=== PATIENT | male | born 1965 | race African-American/Black ===

== ENCOUNTER 2018-09-18 11:42 | Inpatient (IN) | payer OTHER ==
[2018-09-18 12:24] VITALS: BMI 30.1
--- NOTE | 2018-09-18 15:41 | HP ---
CIWA Score Nausea/Vomitin-Mild Nausea/No Vomiting Muscle Tremors: 4-Moderate,w/Arms Extend Anxiety: 4-Mod. Anxious/Guarded Agitation: 4-Moderately Restless Paroxysmal Sweats: 3 Orientation: 0-Oriented Tacttile Disturbances: 0-None Auditory Disturbances: 0-None Visual Disturbances: 0-None Headache: 1-Very Mild CIWA-Ar Total Score: 17 - Admission Criteria OASAS Guidelines: Admission for Medically Managed Detox: Requires at least one of the followin. CIWA greater than 12 2. Seizures within the past 24 hours 3. Delirium tremens within the past 24 hours 4. Hallucinations within the past 24 hours 5. Acute intervention needed for co occurring medical disorder 6. Acute intervention needed for co occurring psychiatric disorder 7. Severe withdrawal that cannot be handled at a lower level of care (continued vomiting, continued diarrhea, abnormal vital signs) requiring intravenous medication and/or fluids 8. Admission ROS S - HPI Chief Complaint: I need to stop drinking and try to stay healthy. Allergies/Adverse Reactions: Allergies Allergy/AdvReac Type Severity Reaction Status Date / Time No Known Allergies Allergy Verified 09/18/18 15:24 History of Present Illness: pt is a 53yr old male with a history of alcohol dependence seeking detox for treatment. Pt is also on a MMTP program taking 140mg last received today. Pending verification. Exam Limitations: No Limitations - Ebola screening Have you traveled outside of the country in the last 21 days: No Have you had contact with anyone from an Ebola affected area: No Have you been sick,other than usual withdrawal symptoms: No Do you have a fever: No - Review of Systems Constitutional: Diaphoresis, Night Sweats, Changes in sleep EENT: reports: Tearing, Nose Congestion Respiratory: reports: Cough Cardiac: reports: Syncope GI: reports: Diarrhea, Poor Appetite, Poor Fluid Intake : reports: No Symptoms Reported Musculoskeletal: reports: Back Pain, Muscle Pain Integumentary: reports: Flushing, Sweating Neuro: reports: Headache, Tingling, Tremors Endocrine: reports: Excessive Sweating, Flushing, Intolerance to Cold, Intolerance to Heat Hematology: reports: No Symptoms Reported Psychiatric: reports: Judgement Intact, Mood/Affect Appropiate, Orientated x3, Agitated, Anxious Other Systems: Reviewed and Negative Patient History - Patient Medical History Hx Anemia: No Hx Asthma: No Hx Chronic Obstructive Pulmonary Disease (COPD): No Hx Cancer: No Hx Cardiac Disorders: No Hx Congestive Heart Failure: No Hx Hypertension: Yes Hx Hypercholesterolemia: No Hx Pacemaker: No HX Cerebrovascular Accident: No Hx Seizures: No Hx Dementia: No Hx Diabetes: No Hx Gastrointestinal Disorders: Yes (acid reflux) Hx Liver Disease: No Hx Genitourinary Disorders: No Hx Sexually Transmitted Disorders: No Hx Renal Disease (ESRD): No Hx Thyroid Disease: No Hx Human Immunodeficiency Virus (HIV): No (negative) Hx Hepatitis C: No (negative) Hx Depression: Yes Hx Suicide Attempt: No (denies) Hx Bipolar Disorder: No Hx Schizophrenia: No Other Medical History: insomnia - Patient Surgical History Past Surgical History: Yes Other Surgical History: tonsillectomy age 12 - PPD History Previous Implant?: Yes Documented Results: Positive w/o proof PPD to be Administered?: Yes - Reproductive History Patient is a Female of Child Bearing Age (11 -55 yrs old): No - Smoking Cessation Smoking history: Current every day smoker Have you smoked in the past 12 months: No Aproximately how many cigarettes per day: 20 Hx Chewing Tobacco Use: No Initiated information on smoking cessation: Yes 'Breaking Loose' booklet given: 09/18/18 - Substance & Tx. History Hx Alcohol Use: Yes Hx Substance Use: Yes Substance Use Type: Alcohol Hx Substance Use Treatment: Yes (last detox 2013 [facility]) - Substances Abused Alcohol Route: Oral Frequency: Daily Amount used: 2 pints of vodka/rum Age of first use: 17 Date of Last Use: 09/18/18 Family Disease History - Family Disease History Family Disease History: Other: Father (liver cirrhosis), Mother (liver cirrhosis ) Admission Physical Exam S - Vital Signs Vital Signs: Vital Signs - 24 hr 09/18/18 12:23 Temperature 98.8 F Pulse Rate 71 Respiratory 16 Rate Blood Pressure 150/102 H - Physical General Appearance: Yes: Appropriately Dressed, Moderate Distress, Tremorous, Irritable, Sweating, Anxious HEENTM: Yes: Hearing grossly Normal, Normal Voice, Rhinorrhea Respiratory: Yes: Normal Breath Sounds Neck: Yes: No masses,lesions,Nodules Breast: Yes: Within Normal Limits Cardiology: Yes: Regular Rhythm, Regular Rate, S1, S2 Abdominal: Yes: Normal Bowel Sounds, Non Tender, Soft Genitourinary: Yes: Within Normal Limits Back: Yes: Normal Inspection Musculoskeletal: Yes: full range of Motion Extremities: Yes: Normal Capillary Refill, Normal Inspection, Non-Tender, Tremors Neurological: Yes: Fully Oriented, Alert, Normal Response Integumentary: Yes: Normal Color, Diaphoresis Lymphatic: Yes: Within Normal Limits - Diagnostic (1) Bipolar depression Current Visit: Yes Status: Acute (2) Drug-induced mood disorder Current Visit: No Status: Acute (3) Methadone maintenance therapy patient Current Visit: Yes Status: Chronic Comment: pending verification; last dose received today with 140mg methadone (4) Nicotine dependence Current Visit: Yes Status: Chronic Qualifiers: Nicotine product type: cigarettes Substance use status: uncomplicated Qualified Code(s): F17.210 - Nicotine dependence, cigarettes, uncomplicated (5) Alcohol dependence with uncomplicated withdrawal Current Visit: Yes Status: Chronic Cleared for Admission S - Detox or Rehab [facility] Level of Care: Medically Managed Detox Regimen/Protocol: Librium S Breath Alcohol Content Breath Alcohol Content: 0 Urine Drug Screen - Results Drug Screen Negative: No Urine Drug Screen Results: MTD-Methadone
[2018-09-18] MEDS ORDERED: ACETAMINOPHEN 325 MG TABLET (FP) PO PRN (15:46)
[2018-09-18] MEDS ORDERED: hydrOXYzine PAMOATE 50 MG CAPSULE (FP) PO PRN (15:46)
[2018-09-18] MEDS ORDERED: IBUPROFEN 400 MG TABLET (FP) PO PRN (15:46)
[2018-09-18] MEDS ORDERED: chlordiazePOXIDE HCL 25 MG CAPSULE PO ONE (15:46)
[2018-09-18] MEDS ORDERED: MENTHOL/PHENOL 1 EACH UD MM PRN (15:46)
[2018-09-18] MEDS ORDERED: guaiFENesin/D-METHORPHAN HB 10 ML UNIT-DOSE CUPS PO PRN (15:46)
[2018-09-18] MEDS ORDERED: LOPERAMIDE HCL 2 MG CAPSULE PO PRN (15:46)
[2018-09-18] MEDS ORDERED: MAGNESIUM CITRATE 300 ML BOTTLE PO PRN (15:46)
[2018-09-18] MEDS ORDERED: chlordiazePOXIDE HCL 25 MG CAPSULE PO PRN (15:46)
[2018-09-18] MEDS ORDERED: P-EPHED 60MG/TRIPROLIDI 2.5MG TABLET PO PRN (15:46)
[2018-09-18] MEDS ORDERED: MAGNESIUM HYDROX 2400MG/30ML ORAL SUSPENSION 30 ML CUP PO PRN (15:46)
[2018-09-18] MEDS ORDERED: NICOTINE POLACRILEX 4 MG GUM BC PRN (15:46)
[2018-09-18] MEDS: chlordiazePOXIDE HCL 25 MG CAPSULE PO SCH ×2 (17:30→22:04)
[2018-09-18] MEDS: THIAMINE HCL 100 MG TABLET (FP) PO SCH (22:04)
[2018-09-18] MEDS: MELATONIN 5 MG TABLETS PO PRN (22:04)
[2018-09-18] MEDS: MONTELUKAST NA 10 MG TABLET PO SCH (22:04)
[2018-09-19] MEDS: chlordiazePOXIDE HCL 25 MG CAPSULE PO SCH ×4 (05:01→22:08)
[2018-09-19] MEDS: MAG HYDROX/AL HYDROX/SIMETH 30 ML UNIT-DOSE CUP PO PRN ×2 (07:53→16:05)
[2018-09-19] MEDS ORDERED: METHADONE HCL 10 MG TABLET PO SCH (09:30)
--- NOTE | 2018-09-19 09:35 | CONSULT ---
[facility] Psychiatric Consult - Data Date of interview: 09/19/18 Admission source: [facility] Identifying data: Mr Zuniga is a 53 years old maried black male, father of a 19 years old son, unemployed receiving food stamp, living with in [place], [place] seeking detox for alcohol Substance Abuse History: Report history of alcohol use. Refer to addiction counselor's summary for further information. Medical History: Significant for hypertension, GERD, and history of tonsillectomy at age 12. Patient is on methadone 140 mg/day. Smokes cigarettes 1 ppd Psychiatric History: Patient is well known to this facility from a previous inpatient rehab admission in December 2013. Then he reported that his first psychiatric contactin preparationto apply for disability, he saw a psychiatrist at [facility] and diagnosed with MDD. He has been receiving psychiatric treatment since. he attended [facility] and he was prescribed Depakote, Paxil and Trazadone. Claimed that at some point, his diagnosis was revised to Bipolar Disorder. Reports that for the past 3 years, he has been seeing a psychiatrist at the [facility] at [address] [place] [address] and he is prescribed Lexapro 10 mg po daily and Ambien 10 mg po HS. Denies previous psychiatric hospitalization or suicidal attempt. At present, Denies experiencing psychotic, manic or depressive symptoms, S/H ideations. Physical/Sexual Abuse/Trauma History: Denies history of emotional, physical or sexual abuse as well as DV relationship. No service Additional Comment: Reports history of 6-7 previous midemeanor arrests in the past. Denies being on probation currently Mental Status Exam - Mental Status Exam Alert and Oriented to: Time, Place, Person Patient Appearance: Well Groomed Mood: Depressed (mildly) Affect: Appropriate Patient Behavior: Cooperative Speech Pattern: Clear Voice Loudness: Normal Thought Process: Intact, Goal Oriented Thought Disorder: Not Present Hallucinations: Denies Suicidal Ideation: Denies Homicidal Ideation: Denies Insight/Judgement: Fair Sleep: Poorly Appetite: Fair Muscle strength/Tone: Normal Gait/Station: Normal Psychiatric Findings - Problem List (Camilla 1, 2,3) (1) Bipolar II disorder Current Visit: Yes Status: Chronic (2) MDD (major depressive disorder) Current Visit: Yes Status: Ruled-out (3) Substance-induced sleep disorder Current Visit: Yes Status: Acute (4) Alcohol dependence with uncomplicated withdrawal Current Visit: Yes Status: Acute (5) Opioid dependence on agonist therapy Current Visit: Yes Status: Chronic (6) Nicotine dependence Current Visit: Yes Status: Chronic Qualifiers: Nicotine product type: cigarettes Substance use status: uncomplicated Qualified Code(s): F17.210 - Nicotine dependence, cigarettes, uncomplicated (7) HTN (hypertension) Current Visit: Yes Status: Chronic (8) GERD (gastroesophageal reflux disease) Current Visit: Yes Status: Chronic - Initial Treatment Plan Initial Treatment Plan: 1) Continue Lexapro 10 mg po daily. 2) Start Belsomra 10 mg po HS prn for insomnia. 3) Continue inpatient detoxification
[2018-09-19] MEDS: LOSARTAN POTASSIUM 50 MG TABLET (FP) PO SCH (10:05)
[2018-09-19] MEDS: PRENATAL VITAMINS W/ FOLIC ACID TABLET (FP) PO SCH (10:06)
[2018-09-19] MEDS: NICOTINE 21 MG/24 HOURS TOPICAL PATCH TD SCH (10:06)
[2018-09-19] MEDS ORDERED: METHADONE HCL 10 MG TABLET ONE (10:08)
[2018-09-19] MEDS ORDERED: METHADONE HCL 40 MG DISPERSABLE TABLET ONE (10:08)
[2018-09-19] MEDS: METHADONE 120 MG, METHADONE 20 MG PO SCH (10:08)
[2018-09-19 11:41] LABS: HEMOGLOBIN 12.3 GM/dL (11.7-16.9); MCH 27.4 pg (25.7-33.7); MCHC 33.3 g/dl (32.0-35.9); MEAN CELL VOLUME 82.4 fl (80-96); MEAN PLT VOLUME 10.1 fl (7.5-11.1); PLATELET COUNT 181 K/MM3 (134-434); RBC 4.49 M/mm3 (4.00-5.60); RDW 14.3 % (11.9-15.9); WHITE BLOOD COUNT 5.9 K/mm3 (4.0-10.0)
[2018-09-19 11:42] LABS: ALBUMIN 3.8 g/dl (3.4-5.0); ALK PHOS 84 U/L (45-117); ANION GAP 5 MMOL/L (8-16); BILIRUBIN,TOTAL 0.4 mg/dL (0.2-1); BLOOD UREA NITROGEN 11 mg/dL (7-18); CALCIUM 8.7 mg/dL (8.5-10.1); CHLORIDE 106 mmol/L (98-107); CO2 29 mmol/L (21-32); CREATININE 1.1 mg/dL (0.55-1.3); GLUCOSE,RANDOM 86 mg/dL (74-106); POTASSIUM 3.8 mmol/L (3.5-5.1); SGOT/AST 14 U/L (15-37); SGPT/ALT 27 U/L (13-61); SODIUM 140 mmol/L (136-145); TOT PROT 7.5 g/dl (6.4-8.2)
[2018-09-19] MEDS: ESCITALOPRAM OXALATE 10 MG TABLET (FP) PO SCH (12:33)
--- NOTE | 2018-09-19 15:26 | PN ---
S CIWA - CIWA Score Nausea/Vomitin-No Nausea/No Vomiting Muscle Tremors: 3 Anxiety: 2 Agitation: 0-Normal Activity Paroxysmal Sweats: 3 Orientation: 0-Oriented Tacttile Disturbances: 2-Mild Itch/Numbness/Burn Auditory Disturbances: 1-Very Mild Visual Disturbances: 2-Mild Sensitivity Headache: 0-None Present CIWA-Ar Total Score: 13 BHS Progress Note (SOAP) Subjective: Interrupted Sleep, Tremors, Sweating, Stomach Cramping. Objective: PATIENT A & O X 3, OBSERVED AMBULATING ON UNIT. IN NO ACUTE DISTRESS. 09/19/18 15:27 Vital Signs Temperature 96.8 F L 09/19/18 13:00 Pulse Rate 70 09/19/18 13:00 Respiratory Rate 18 09/19/18 13:00 Blood Pressure 120/81 09/19/18 13:00 O2 Sat by Pulse Oximetry (%) Laboratory Tests 09/18/18 09/19/18 09/19/18 05:45 05:45 05:45 WBC 5.9 RBC 4.49 Hgb 12.3 Hct 37.0 MCV 82.4 MCH 27.4 MCHC 33.3 RDW 14.3 Plt Count 181 MPV 10.1 Sodium 140 Potassium 3.8 Chloride 106 Carbon Dioxide 29 Anion Gap 5 L BUN 11 Creatinine 1.1 Creat Clearance w eGFR > 60 Random Glucose 86 Calcium 8.7 Total Bilirubin 0.4 AST 14 L ALT 27 Alkaline Phosphatase 84 Total Protein 7.5 Albumin 3.8 RPR Titer HIV 1&2 Antibody Screen Negative HIV P24 Antigen Negative 09/19/18 05:45 WBC RBC Hgb Hct MCV MCH MCHC RDW Plt Count MPV Sodium Potassium Chloride Carbon Dioxide Anion Gap BUN Creatinine Creat Clearance w eGFR Random Glucose Calcium Total Bilirubin AST ALT Alkaline Phosphatase Total Protein Albumin RPR Titer Nonreactive HIV 1&2 Antibody Screen HIV P24 Antigen LABS NOTED. Assessment: 09/19/18 15:27 WITHDRAWAL SYMPTOMS. Plan: CONTINUE DETOX.
--- NOTE | 2018-09-19 18:19 | EKG ---
Test Reason : Blood Pressure : / mmHG Vent. Rate : 065 BPM Atrial Rate : 065 BPM P-R Int : 162 ms QRS Dur : 082 ms QT Int : 448 ms P-R-T Axes : 054 027 -01 degrees QTc Int : 465 ms NORMAL SINUS RHYTHM MINIMAL VOLTAGE CRITERIA FOR LVH, MAY BE NORMAL VARIANT BORDERLINE ECG NO PREVIOUS ECGS AVAILABLE Confirmed by MD MASSIMO, JAYJAY (2013) on 09/19/2018 6:19:00 PM Referred By: Confirmed By:JAYJAY KEYS MD
[2018-09-19] MEDS ORDERED: SUVOREXANT 10 MG TABLET PO PRN (22:00)
[2018-09-19] MEDS: MONTELUKAST NA 10 MG TABLET PO SCH (22:08)
[2018-09-19] MEDS: MELATONIN 5 MG TABLETS PO PRN (22:08)
[2018-09-19] MEDS: THIAMINE HCL 100 MG TABLET (FP) PO SCH (22:08)
[2018-09-20] MEDS ORDERED: METHADONE HCL 10 MG TABLET ONE (04:47)
[2018-09-20] MEDS ORDERED: METHADONE HCL 40 MG DISPERSABLE TABLET ONE (04:48)
[2018-09-20] MEDS: chlordiazePOXIDE HCL 25 MG CAPSULE PO SCH ×2 (05:02→10:13)
[2018-09-20] MEDS: METHADONE 120 MG, METHADONE 20 MG PO SCH (05:02)
[2018-09-20] MEDS: PRENATAL VITAMINS W/ FOLIC ACID TABLET (FP) PO SCH (10:11)
[2018-09-20] MEDS: NICOTINE 21 MG/24 HOURS TOPICAL PATCH TD SCH (10:12)
[2018-09-20] MEDS: LOSARTAN POTASSIUM 50 MG TABLET (FP) PO SCH (10:12)
[2018-09-20] MEDS: ESCITALOPRAM OXALATE 10 MG TABLET (FP) PO SCH (10:12)
--- NOTE | 2018-09-20 11:37 | PN ---
S CIWA - CIWA Score Nausea/Vomitin-Mild Nausea/No Vomiting Muscle Tremors: 2 Anxiety: 2 Agitation: 1-Slight > Activity Paroxysmal Sweats: 1-Minimal Palms Moist Orientation: 1-Uncertain about Date Tacttile Disturbances: 0-None Auditory Disturbances: 0-None Visual Disturbances: 0-None Headache: 2-Mild CIWA-Ar Total Score: 10 BHS Progress Note (SOAP) Subjective: tremor sweating low energy irritable Objective: 09/20/18 11:37 Vital Signs Temperature 97.0 F L 09/20/18 09:03 Pulse Rate 75 09/20/18 09:03 Respiratory Rate 18 09/20/18 09:03 Blood Pressure 118/76 09/20/18 09:03 O2 Sat by Pulse Oximetry (%) Laboratory Last Values WBC 5.9 K/mm3 (4.0-10.0) 09/19/18 05:45 RBC 4.49 M/mm3 (4.00-5.60) 09/19/18 05:45 Hgb 12.3 GM/dL (11.7-16.9) 09/19/18 05:45 Hct 37.0 % (35.4-49) 09/19/18 05:45 MCV 82.4 fl (80-96) 09/19/18 05:45 MCH 27.4 pg (25.7-33.7) 09/19/18 05:45 MCHC 33.3 g/dl (32.0-35.9) 09/19/18 05:45 RDW 14.3 % (11.9-15.9) 09/19/18 05:45 Plt Count 181 K/MM3 (134-434) 09/19/18 05:45 MPV 10.1 fl (7.5-11.1) 09/19/18 05:45 Sodium 140 mmol/L (136-145) 09/19/18 05:45 Potassium 3.8 mmol/L (3.5-5.1) 09/19/18 05:45 Chloride 106 mmol/L (98-107) 09/19/18 05:45 Carbon Dioxide 29 mmol/L (21-32) 09/19/18 05:45 Anion Gap 5 MMOL/L (8-16) L 09/19/18 05:45 BUN 11 mg/dL (7-18) 09/19/18 05:45 Creatinine 1.1 mg/dL (0.55-1.3) 09/19/18 05:45 Creat Clearance w eGFR > 60 (>60) 09/19/18 05:45 Random Glucose 86 mg/dL (74-106) 09/19/18 05:45 Calcium 8.7 mg/dL (8.5-10.1) 09/19/18 05:45 Total Bilirubin 0.4 mg/dL (0.2-1) 09/19/18 05:45 AST 14 U/L (15-37) L 09/19/18 05:45 ALT 27 U/L (13-61) 09/19/18 05:45 Alkaline Phosphatase 84 U/L (45-117) 09/19/18 05:45 Total Protein 7.5 g/dl (6.4-8.2) 09/19/18 05:45 Albumin 3.8 g/dl (3.4-5.0) 09/19/18 05:45 RPR Titer Nonreactive (NONREACTIVE) 09/19/18 05:45 HIV 1&2 Antibody Screen Negative 09/18/18 05:45 HIV P24 Antigen Negative 09/18/18 05:45 lab noted Assessment: 09/20/18 11:37 withdrawal sx Plan: continue detox
[2018-09-20] MEDS: chlordiazePOXIDE 5 MG CAPSULE PO SCH ×2 (17:16→22:03)
[2018-09-20] MEDS: MONTELUKAST NA 10 MG TABLET PO SCH (22:03)
[2018-09-20] MEDS: MELATONIN 5 MG TABLETS PO PRN (22:03)
[2018-09-20] MEDS: THIAMINE HCL 100 MG TABLET (FP) PO SCH (22:03)
[2018-09-21] MEDS ORDERED: METHADONE HCL 10 MG TABLET ONE (04:32)
[2018-09-21] MEDS ORDERED: METHADONE HCL 40 MG DISPERSABLE TABLET ONE (04:33)
[2018-09-21] MEDS: chlordiazePOXIDE 5 MG CAPSULE PO SCH ×2 (05:09→10:04)
[2018-09-21] MEDS: METHADONE 120 MG, METHADONE 20 MG PO SCH (05:10)
[2018-09-21] MEDS: ESCITALOPRAM OXALATE 10 MG TABLET (FP) PO SCH (10:04)
[2018-09-21] MEDS: PRENATAL VITAMINS W/ FOLIC ACID TABLET (FP) PO SCH (10:04)
[2018-09-21] MEDS: LOSARTAN POTASSIUM 50 MG TABLET (FP) PO SCH (10:05)
[2018-09-21] MEDS: NICOTINE 21 MG/24 HOURS TOPICAL PATCH TD SCH (10:05)
[2018-09-21] MEDS: SENNOSIDES/DOCUSATE COMBO (SENNA PLUS) TABLET (UD) PO SCH ×2 (13:22→22:42)
--- NOTE | 2018-09-21 14:25 | PN ---
BHS Progress Note (SOAP) Subjective: Sweating, Constipation. Objective: PATIENT A & O X 3, OBSERVED AMBULATING ON UNIT. IN NO ACUTE DISTRESS. 09/21/18 14:23 Vital Signs Temperature 97.4 F L 09/21/18 13:57 Pulse Rate 73 09/21/18 13:57 Respiratory Rate 20 09/21/18 13:57 Blood Pressure 108/69 09/21/18 13:57 O2 Sat by Pulse Oximetry (%) Laboratory Tests 09/18/18 09/19/18 09/19/18 05:45 05:45 05:45 WBC 5.9 RBC 4.49 Hgb 12.3 Hct 37.0 MCV 82.4 MCH 27.4 MCHC 33.3 RDW 14.3 Plt Count 181 MPV 10.1 Sodium 140 Potassium 3.8 Chloride 106 Carbon Dioxide 29 Anion Gap 5 L BUN 11 Creatinine 1.1 Creat Clearance w eGFR > 60 Random Glucose 86 Calcium 8.7 Total Bilirubin 0.4 AST 14 L ALT 27 Alkaline Phosphatase 84 Total Protein 7.5 Albumin 3.8 RPR Titer HIV 1&2 Antibody Screen Negative HIV P24 Antigen Negative 09/19/18 05:45 WBC RBC Hgb Hct MCV MCH MCHC RDW Plt Count MPV Sodium Potassium Chloride Carbon Dioxide Anion Gap BUN Creatinine Creat Clearance w eGFR Random Glucose Calcium Total Bilirubin AST ALT Alkaline Phosphatase Total Protein Albumin RPR Titer Nonreactive HIV 1&2 Antibody Screen HIV P24 Antigen LABS NOTED. Assessment: 09/21/18 14:24 WITHDRAWAL SYMPTOMS. Plan: CONTINUE DETOX. INCREASE DAILY PO FLUID INTAKE. PATIENT SCHEDULED FOR D/C TOMORROW.
[2018-09-21] MEDS: chlordiazePOXIDE HCL 10 MG CAPSULE PO SCH ×2 (17:25→22:42)
[2018-09-21] MEDS: MONTELUKAST NA 10 MG TABLET PO SCH (22:42)
[2018-09-21] MEDS: THIAMINE HCL 100 MG TABLET (FP) PO SCH (22:42)
[2018-09-21] MEDS: MELATONIN 5 MG TABLETS PO PRN (22:43)
[2018-09-22] MEDS ORDERED: METHADONE HCL 10 MG TABLET ONE (03:14)
[2018-09-22] MEDS ORDERED: METHADONE HCL 40 MG DISPERSABLE TABLET ONE (03:15)
[2018-09-22] MEDS: chlordiazePOXIDE HCL 10 MG CAPSULE PO SCH ×2 (05:24→11:43)
[2018-09-22] MEDS: METHADONE 120 MG, METHADONE 20 MG PO SCH (05:24)
[2018-09-22 05:59] VITALS: BP 118/82; PULSE 67; TEMP 97.7
[2018-09-22] MEDS: PRENATAL VITAMINS W/ FOLIC ACID TABLET (FP) PO SCH (10:07)
[2018-09-22] MEDS: ESCITALOPRAM OXALATE 10 MG TABLET (FP) PO SCH (10:07)
[2018-09-22] MEDS: LOSARTAN POTASSIUM 50 MG TABLET (FP) PO SCH (10:07)
[2018-09-22] MEDS: SENNOSIDES/DOCUSATE COMBO (SENNA PLUS) TABLET (UD) PO SCH (10:08)
[2018-09-22] MEDS: NICOTINE 21 MG/24 HOURS TOPICAL PATCH TD SCH (10:09)
--- NOTE | 2018-09-22 18:11 | DS ---
[facility] Detox Discharge Summary Admission Date: 09/18/18 Discharge Date: 09/22/18 - History Present History: Alcohol Dependence, Opioid Dependence, MMTP Additional Comments: PATIENT GOING TO [facility] ([place], [place]) FOR AFTERCARE. PATIENT WAS [id number] FROM DETOX UNIT IN STABLE MEDICAL CONDITION. Pertinent Past History: M.M.T.P., History of Depression, History of Insomnia, Bipolar II Disorder, Nicotine Dependence, History of Acid Reflux, History of Insomnia, History of Hypertension. - Physical Exam Results Vital Signs: Vital Signs Temperature 97.7 F 09/22/18 05:58 Pulse Rate 67 09/22/18 05:58 Respiratory Rate 18 09/22/18 05:58 Blood Pressure 118/82 09/22/18 05:58 O2 Sat by Pulse Oximetry (%) Pertinent Admission Physical Exam Findings: WITHDRAWAL SYMPTOMS. Laboratory Tests 09/18/18 09/19/18 09/19/18 05:45 05:45 05:45 WBC 5.9 RBC 4.49 Hgb 12.3 Hct 37.0 MCV 82.4 MCH 27.4 MCHC 33.3 RDW 14.3 Plt Count 181 MPV 10.1 Sodium 140 Potassium 3.8 Chloride 106 Carbon Dioxide 29 Anion Gap 5 L BUN 11 Creatinine 1.1 Creat Clearance w eGFR > 60 Random Glucose 86 Calcium 8.7 Total Bilirubin 0.4 AST 14 L ALT 27 Alkaline Phosphatase 84 Total Protein 7.5 Albumin 3.8 RPR Titer HIV 1&2 Antibody Screen Negative HIV P24 Antigen Negative 09/19/18 05:45 WBC RBC Hgb Hct MCV MCH MCHC RDW Plt Count MPV Sodium Potassium Chloride Carbon Dioxide Anion Gap BUN Creatinine Creat Clearance w eGFR Random Glucose Calcium Total Bilirubin AST ALT Alkaline Phosphatase Total Protein Albumin RPR Titer Nonreactive HIV 1&2 Antibody Screen HIV P24 Antigen LABS NOTED. - Treatment Hospital Course: Detox Protocol Followed, Detoxed Safely, Responded well, Discharged Condition Good, Rehab Referral Accepted Patient has Accepted a Rehab Referral to: [facility] ([place], [place]). - Medication Discharge Medications: Ambulatory Orders Escitalopram Oxalate [Lexapro -] 10 mg PO DAILY 09/18/18 Losartan Potassium [Cozaar] 100 mg PO DAILY 09/18/18 Montelukast Na [Singulair -] 10 mg PO HS 09/18/18 Naproxen [Naprosyn -] 500 mg PO BID 09/18/18 Zolpidem Tartrate [Ambien] 10 mg PO HS 09/18/18 - Diagnosis (1) Alcohol dependence with uncomplicated withdrawal Status: Acute (2) Substance-induced sleep disorder Status: Acute (3) Bipolar II disorder Status: Chronic (4) GERD (gastroesophageal reflux disease) Status: Chronic Qualifiers: Esophagitis presence: esophagitis presence not specified Qualified Code(s) : K21.9 - Gastro-esophageal reflux disease without esophagitis (5) Methadone maintenance therapy patient Status: Chronic (6) Nicotine dependence Status: Chronic Qualifiers: Nicotine product type: cigarettes Substance use status: uncomplicated Qualified Code(s): F17.210 - Nicotine dependence, cigarettes, uncomplicated (7) Opioid dependence on agonist therapy Status: Chronic (8) MDD (major depressive disorder) Status: Ruled-out Qualifiers: Major depression recurrence: unspecified whether recurrent Active/ Remission status: remission status unspecified Qualified Code(s): F32.9 - Major depressive disorder, single episode, unspecified (9) Drug-induced mood disorder Status: Acute (10) HTN (hypertension) Status: Chronic Qualifiers: Hypertension type: unspecified Qualified Code(s): I10 - Essential (primary ) hypertension - AMA Did Patient Leave Against Medical Advice: No
== END 2018-09-22 12:28 | disposition home or self-care (01) | DRG 773 ==
LOC: YASAS 11:42 → Y3N 16:06
PROVIDERS: ADMIT Neuromusculoskeletal Medicine & OMM; ATTEND Neuromusculoskeletal Medicine & OMM
PROC: HZ2ZZZZ Detoxification Services for Substance Abuse Treatment (ICD-10-PCS; principal; 2018-09-18)
DX: F10.230 Alcohol dependence with withdrawal, uncomplicated (principal); F11.20 Opioid dependence, uncomplicated; F17.210 Nicotine dependence, cigarettes, uncomplicated; F19.282 Other psychoactive substance dependence with psychoactive substance-induced sleep disorder; F19.24 Other psychoactive substance dependence with psychoactive substance-induced mood disorder; F31.81 Bipolar II disorder; F33.9 Major depressive disorder, recurrent, unspecified; I10 Essential (primary) hypertension; K21.9 Gastro-esophageal reflux disease without esophagitis
CPT/HCPCS: 36415; 80053; 85027; 86593; 87389; 93005; 93010

== ENCOUNTER 2023-11-17 17:26 | Inpatient (IN) | payer OTHER ==
[2023-11-17 18:22] VITALS: BMI 41.3
[2023-11-17] MEDS ORDERED: guaiFENesin 600 MG TABLET.ER (FP) PO PRN (22:44)
[2023-11-17] MEDS ORDERED: NALOXONE HCL 0.4 MG/ML VIAL IM PRN (22:44)
[2023-11-17] MEDS ORDERED: IBUPROFEN 600 MG TABLET (FP) PO PRN (22:44)
[2023-11-17] MEDS ORDERED: POLYETHYLENE GLYCOL (HEALTHYLAX) 3350 17 GM PACKET PO PRN (22:44)
[2023-11-17] MEDS ORDERED: ACETAMINOPHEN 325 MG TABLET (FP) PO PRN (22:44)
[2023-11-17] MEDS ORDERED: IBUPROFEN 400 MG TABLET (FP) PO PRN (22:44)
[2023-11-17] MEDS ORDERED: NALOXONE HCL (KLOXXADO) 8 MG SPRAY NS PRN (22:44)
[2023-11-17] MEDS ORDERED: LOPERAMIDE HCL 2 MG CAPSULE PO PRN (22:44)
[2023-11-17] MEDS ORDERED: MAGNESIUM HYDROX 2400MG/30ML ORAL SUSPENSION 30 ML CUP PO PRN (22:44)
[2023-11-18] MEDS: MELATONIN 5 MG TABLETS PO SCH (01:52)
[2023-11-18] MEDS: hydrOXYzine PAMOATE 25 MG CAPSULE (FP) PO PRN (05:41)
[2023-11-18] MEDS: TUBERCULIN PPD 5 TU/0.1ML SYRINGE (IN PATIENT USE ONLY) ID ONE (06:16)
[2023-11-18] MEDS: NICOTINE 14 MG/24 HOURS TOPICAL PATCH TD SCH (10:24)
[2023-11-18] MEDS: PRENATAL VITAMINS W/ FOLIC ACID TABLET (FP) PO SCH (10:24)
[2023-11-18] MEDS: methaDONE 40 MG, methaDONE 10 MG PO ONE (10:44)
[2023-11-18] MEDS: methaDONE HCL 10 MG TABLET PO SCH (10:52)
[2023-11-18 12:24] LABS: HEMOGLOBIN 12.6 GM/dL (11.7-16.9); MCH 26.9 pg (25.7-33.7); MCHC 32.4 g/dl (32.0-35.9); MEAN CELL VOLUME 83.2 fl (80-96); MEAN PLT VOLUME 9.7 fl (7.5-11.1); PLATELET COUNT 162 10^3/uL (134-434); RBC 4.68 M/mm3 (4.00-5.60); RDW 14.1 % (11.9-15.9); WHITE BLOOD COUNT 4.3 K/mm3 (4.0-10.0)
[2023-11-18 12:43] LABS: CHLORIDE 108 mmol/L (98-107); POTASSIUM 4.5 mmol/L (3.5-5.1); SODIUM 143 mmol/L (136-145)
[2023-11-18 12:50] LABS: ALBUMIN 3.4 g/dl (3.4-5.0); GLUCOSE,RANDOM 94 mg/dL (74-106); SGPT/ALT 19 U/L (13-61)
[2023-11-18 12:51] LABS: BLOOD UREA NITROGEN 8.7 mg/dL (7-18); CREATININE 0.9 mg/dL (0.55-1.3)
[2023-11-18 12:52] LABS: BILIRUBIN,TOTAL 0.5 mg/dL (0.2-1)
[2023-11-18 12:53] LABS: ALK PHOS 74 U/L (45-117); ANION GAP 6 mmol/L (4-13); CALCIUM 9.2 mg/dL (8.5-10.1); CO2 29 mmol/L (21-32)
[2023-11-18 12:54] LABS: SGOT/AST 10 U/L (15-37)
[2023-11-18] MEDS: THIAMINE HCL 100 MG TABLET (FP) PO SCH (21:33)
[2023-11-18] MEDS: SUVOREXANT 10 MG TABLET PO PRN (21:34)
[2023-11-19] MEDS: BENZOCAINE/MENTHOL (CHLORASEPTIC ) LOZENGE MM PRN (06:37)
[2023-11-19] MEDS: BENZONATATE 200 MG CAPSULE PO PRN (06:38)
[2023-11-19] MEDS: methaDONE 40 MG, methaDONE 10 MG PO SCH (06:39)
[2023-11-19 13:12] LABS: PH,URINE 5.5 (5.0-8.0); URINE APPEARANCE CLEAR; URINE BILIRUBIN NEGATIVE (NEGATIVE); URINE COLOR YELLOW; URINE GLUCOSE (UA) NEGATIVE (NEGATIVE); URINE KETONE NEGATIVE (NEGATIVE); URINE LEUK ESTERASE NEGATIVE (NEGATIVE); URINE NITRITE NEGATIVE (NEGATIVE); URINE PROTEIN NEGATIVE (NEGATIVE); URINE UROBILINOGEN 0.2 mg/dL (0.2-1.0)
[2023-11-21] MEDS ORDERED: ARTIFICIAL TEARS OPHTHALMIC DROPS OU PRN (09:43)
[2023-11-21] MEDS: BACLOFEN 10 MG TABLET (FP) PO SCH (10:41)
[2023-11-21] MEDS: LOSARTAN POTASSIUM 50 MG TABLET PO SCH (10:41)
[2023-11-21] MEDS: NICOTINE 21 MG/24 HOURS TOPICAL PATCH TD SCH (10:42)
[2023-11-21] MEDS: TOLNAFTATE 1% CREAM 15 GM TUBE TP SCH (10:43)
[2023-11-21] MEDS: MONTELUKAST NA 10 MG TABLET PO SCH (21:49)
[2023-11-22] MEDS: SUVOREXANT 10 MG TABLET PO PRN (21:31)
[2023-11-24] MEDS: SUVOREXANT 10 MG TABLET PO PRN (21:30)
[2023-11-26] MEDS ORDERED: methaDONE HCL 10 MG TABLET PO SCH (11:00)
[2023-11-26] MEDS: methaDONE 40 MG, methaDONE 10 MG PO SCH (11:12)
[2023-11-28] MEDS: SUVOREXANT 10 MG TABLET PO PRN (21:10)
[2023-11-30] MEDS: SUVOREXANT 10 MG TABLET PO PRN (21:04)
[2023-12-01] MEDS: MAG HYDROX/AL HYDROX/SIMETH 30 ML UNIT-DOSE CUP PO PRN (18:33)
[2023-12-02] MEDS ORDERED: DOCUSATE SODIUM 100 MG CAPSULE (FP) PO PRN (09:18)
[2023-12-02] MEDS: amLODIPine BESYLATE 2.5 MG TABLET (FP) PO SCH (09:25)
[2023-12-02] MEDS: traZODone HCL 100 MG TABLET (FP) PO SCH (21:39)
[2023-12-02] MEDS: SUVOREXANT 10 MG TABLET PO PRN (22:09)
[2023-12-03] MEDS: methaDONE 40 MG, methaDONE 10 MG PO SCH (06:16)
[2023-12-06] MEDS: SUVOREXANT 10 MG TABLET PO PRN (21:05)
[2023-12-07] MEDS: SUVOREXANT 10 MG TABLET PO PRN (21:25)
[2023-12-10] MEDS: NICOTINE POLACRILEX 2 MG GUM BUC PRN (06:46)
[2023-12-11] MEDS ORDERED: SUVOREXANT 10 MG TABLET PO PRN (22:00)
[2023-12-12 06:58] VITALS: TEMP 97.5
[2023-12-12 09:04] VITALS: BP 124/77; PULSE 75; RESP 16
== END 2023-12-12 09:19 | disposition home or self-care (01) | DRG 772 ==
LOC: YASAS 17:26 → Y3NR 11-18 01:26 → Y3W 11-18 10:39
PROVIDERS: ADMIT Allergy & Immunology; ATTEND Psychiatry & Neurology Pain Medicine
PROC: HZ42ZZZ Group Counseling for Substance Abuse Treatment, Cognitive-Behavioral (ICD-10-PCS; principal; 2023-11-18)
DX: F10.20 Alcohol dependence, uncomplicated (principal); F11.20 Opioid dependence, uncomplicated; F17.210 Nicotine dependence, cigarettes, uncomplicated; F31.81 Bipolar II disorder; F19.282 Other psychoactive substance dependence with psychoactive substance-induced sleep disorder; F19.24 Other psychoactive substance dependence with psychoactive substance-induced mood disorder; F43.10 Post-traumatic stress disorder, unspecified; I10 Essential (primary) hypertension; K21.9 Gastro-esophageal reflux disease without esophagitis; G47.00 Insomnia, unspecified; B35.3 Tinea pedis; H04.123 Dry eye syndrome of bilateral lacrimal glands
CPT/HCPCS: 36415; 80053; 80305; 80307; 81003; 85027; 86780; 87635; 87811; 93005; 93010; J0475